=== PATIENT | male | born 1985 | race Two or more races ===

== ENCOUNTER 2017-03-30 00:45 | Emergency (ER) | payer BC ==
[~2017-03-30] VITALS: Ht 165.1 cm; Wt 72.6 kg
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
--- NOTE | 2017-03-30 01:10 | NUR ---
XRAY AT THE BEDSIDE.
--- NOTE | 2017-03-30 01:30 | NUR ---
PT'S FINGER IS BEING SUTURED.
--- NOTE | 2017-03-30 01:46 | NUR ---
FINGER CLEANED, SPLINT APPLIED, AND BEING WRAPPED WITH KERLEX. Patient discharged to home in stable condition. Written and verbal after care instructions given. Patient verbalizes understanding of instruction. PT AMBULATED OUT WITH A STEADY GAIT. VSS.
[2017-03-30 01:47] VITALS: BP 121/82
== END 2017-03-30 01:50 | disposition home or self-care (01) ==
LOC: ER 00:45
DX: S61.216A Laceration without foreign body of right little finger without damage to nail, initial encounter (principal); W25.XXXA Contact with sharp glass, initial encounter; Y93.89 Activity, other specified; Y92.89 Other specified places as the place of occurrence of the external cause; Y99.8 Other external cause status
CPT/HCPCS: 12001; 73120; 99284; A4606; A6402; Z7610

== ENCOUNTER 2017-04-05 06:05 | Emergency (ER) | payer BC ==
[~2017-04-05] VITALS: Ht 167.6 cm; Wt 72.6 kg
[2017-04-05 06:10] VITALS: BP 119/86
== END 2017-04-05 06:31 | disposition home or self-care (01) ==
LOC: ER 06:09
DX: S61.214D Laceration without foreign body of right ring finger without damage to nail, subsequent encounter (principal)
CPT/HCPCS: 99281; A4606; Z7610; Z7502

== ENCOUNTER 2017-04-08 01:14 | Emergency (ER) | payer BC ==
[~2017-04-08] VITALS: Ht 167.6 cm; Wt 72.6 kg
[2017-04-08 01:21] VITALS: BP 143/68
== END 2017-04-08 01:36 | disposition home or self-care (01) ==
LOC: ER 01:14
DX: S61.214D Laceration without foreign body of right ring finger without damage to nail, subsequent encounter (principal); I10 Essential (primary) hypertension
CPT/HCPCS: A4606; Z7502; Z7610